=== PATIENT | male | born 1985 | race Caucasian/White ===

== ENCOUNTER 2018-10-27 14:50 | Observation (INO) | payer OTHER ==
[~2018-10-27 14:50] MED LIST: DEXAMETHASONE SOD PHOS (MDV) 100 MG/10 ML VIAL ONE; GLYCOPYRROLATE 0.2 MG/ML 2 ML VIAL ONE; KETOROLAC 30 MG/ML 1 ML VIAL ONE; LIDOCAINE 1% INJ 10MG/ML (20 ML MDV) ONE; MIDAZOLAM 2 MG/2 ML VIAL ONE; NEOSTIGMINE 1 MG/ML 10 ML VIAL ONE; ONDANSETRON 4 MG/2 ML VIAL ONE; PROPOFOL 10 MG/ML 20 ML VIAL IV ONE; ROCURONIUM BROMIDE 10 MG/ML 10 ML VIAL IV ONE; ePHEDrine SULFATE/0.9% NACL/PF 50 MG/5 ML SYRINGE IV ONE; fentaNYL (PF) 50 MCG/ML 2 ML AMP ONE
--- NOTE | 2018-10-27 15:24 | ED ---
General Adult HPI - General Chief complaint: Abdominal Pain Stated complaint: Lower abd pain Time Seen by Provider: 10/27/18 15:15 Source: patient Mode of arrival: ambulatory Limitations: no limitations - Related Data Home Medications Medication Instructions Recorded Confirmed Ascorbic Acid [Vitamin C] 500 mg PO DAILY 10/27/18 10/27/18 Multivitamins, Thera [Multivitamin 1 tab PO DAILY 10/27/18 10/27/18 (formulary)] Allergies Allergy/AdvReac Type Severity Reaction Status Date / Time latex AdvReac Rash/Hives Verified 10/27/18 16:11 Review of Systems ROS Statement: Those systems with pertinent positive or pertinent negative responses have been documented in the HPI. ROS Other: All systems not noted in ROS Statement are negative. Past Medical History Past Medical History: No Reported History History of Any Multi-Drug Resistant Organisms: None Reported Past Surgical History: Orthopedic Surgery Past Psychological History: No Psychological Hx Reported Smoking Status: Never smoker Past Alcohol Use History: Occasional Past Drug Use History: None Reported General Exam Limitations: no limitations Course Vital Signs 10/27/18 15:05 Temperature 98.9 F Pulse Rate 125 H Respiratory 18 Rate Blood Pressure 146/76 O2 Sat by Pulse 99 Oximetry Medical Decision Making - Medical Decision Making Dictation was produced using [employer] dictation software. please excuse any grammatical, word or spelling errors. Chief Complaint: 33-year-old male with no significant past medical history presents with right lower quadrant pain. History of Present Illness: Patient states the symptoms began yesterday. He states that yesterday it was localized on his. No region. He states that today his pain changes in characteristic turn from the sharp and moving to his right lower quadrant. He states that pain is worse with palpation. Patient states that he has been nauseated and slightly diaphoretic. Patient denies any history of abdominal surgery. Patient complaining of constitutional symptoms. The ROS documented in this emergency department record has been reviewed and confirmed by me. Those systems with pertinent positive or negative responses have been documented in the HPI. All other systems are other negative and/or noncontributory. PHYSICAL EXAM: General Impression: Alert and oriented x3, not in acute distress HEENT: Normocephalic atraumatic, extra-ocular movements intact, pupils equal and reactive to light bilaterally, mucous membranes moist. Cardiovascular: Heart regular rate and rhythm, S1&S2 audible, no murmurs, rubs or gallops Chest: Lungs clear to auscultation bilaterally, no rhonchi, no wheeze, no rales Abdomen: Bowel sounds present, abdomen soft, tenderness to the right lower quadrant. No rebound tenderness Musculoskeletal: Pulses present and equal in all extremities, no peripheral edema Motor: Power 5/5 bilaterally, no focal deficits noted Neurological: CN II-XII grossly intact, no focal motor or sensory deficits noted Skin: Intact with no visualized rashes Psych: Normal affect and mood ED course: 33-year-old male chief complaint of abdominal pain. As upon arrival shows heart rate 125, rest of vital signs within acceptable limits. There is clinical suspicion of appendicitis. CT abdomen and pelvis with contrast shows findings of acute appendicitis. Pending labs. Discussed patient case Dr. Moreau who is willing to accept the admission. Patient started on ceftriaxone and Flagyl. Patient offered medications for analgesia however he refused.Laboratory evaluation obtained. Leukocytosis of 18.7. Rest of labs unremarkable. Metabolic panel is unremarkable. Urinalysis negative. - Lab Data Result diagrams: 10/27/18 15:25 10/27/18 15:25 Lab Results 10/27/18 10/27/18 10/27/18 Range/Units 15:25 15:25 15:25 WBC 18.7 H (3.8-10.6) k/uL RBC 5.40 (4.30-5.90) m/uL Hgb 16.4 (13.0-17.5) gm/dL Hct 49.0 (39.0-53.0) % MCV 90.8 (80.0-100.0) fL MCH 30.5 (25.0-35.0) pg MCHC 33.5 (31.0-37.0) g/dL RDW 12.4 (11.5-15.5) % Plt Count 264 (150-450) k/uL Neutrophils % 89 % Lymphocytes % 6 % Monocytes % 4 % Eosinophils % 1 % Basophils % 0 % Neutrophils # 16.6 H (1.3-7.7) k/uL Lymphocytes # 1.2 (1.0-4.8) k/uL Monocytes # 0.7 (0-1.0) k/uL Eosinophils # 0.1 (0-0.7) k/uL Basophils # 0.0 (0-0.2) k/uL Sodium 141 (137-145) mmol/L Potassium 3.8 (3.5-5.1) mmol/L Chloride 103 (98-107) mmol/L Carbon Dioxide 26 (22-30) mmol/L Anion Gap 12 mmol/L BUN 8 L (9-20) mg/dL Creatinine 0.64 L (0.66-1.25) mg/dL Est GFR (CKD-EPI)AfAm >90 (>60 ml/min/1.73 sqM) Est GFR (CKD-EPI)NonAf >90 (>60 ml/min/1.73 sqM) Glucose 115 H (74-99) mg/dL Calcium 10.8 H (8.4-10.2) mg/dL Total Bilirubin 0.6 (0.2-1.3) mg/dL AST 24 (17-59) U/L ALT 42 (21-72) U/L Alkaline Phosphatase 101 (38-126) U/L Total Protein 8.3 H (6.3-8.2) g/dL Albumin 4.9 (3.5-5.0) g/dL Lipase 96 (23-300) U/L Urine Color Light Yellow Urine Appearance Clear (Clear) Urine pH 5.5 (5.0-8.0) Ur Specific [place] 1.004 (1.001-1.035) Urine Protein Negative (Negative) Urine Glucose (UA) Negative (Negative) Urine Blood Negative (Negative) Urine Nitrite Negative (Negative) Urine Bilirubin Negative (Negative) Urine Urobilinogen <2.0 (<2.0) mg/dL Ur Leukocyte Esterase Negative (Negative) Disposition Clinical Impression: Acute appendicitis Disposition: ADMITTED IP TO THIS [facility] Condition: Fair Referrals: None,Stated [Primary Care Provider] - 1-2 days Decision Time: 16:21
[2018-10-27] MEDS ORDERED: metroNIDAZOLE-NS PMX 500 MG in SALINE 1 100ML.BAG IVPB STA (16:03)
--- NOTE | 2018-10-27 16:05 | CT ---
EXAMINATION TYPE: CT abdomen pelvis w con DATE OF EXAM: 10/27/2018 COMPARISON: None INDICATION: RLQ pain with nausea DLP: 1602.1 mGycm, Automated exposure control for dose reduction was used. CONTRAST: 100 mL of Isovue 300. Study performed without Oral Contrast TECHNIQUE: Axial images were obtained from above the diaphragm to the pubic rami in the axial plane a t 5 mm thick sections. Reconstructed images are reviewed on the computer in the coronal plane. FINDINGS: Limited CT sections are obtained the lung bases. The lung bases are clear. CT ABDOMEN: There is a periumbilical hernia containing mesenteric fat. The opening is 1.4 cm. Liver: Normal Spleen: Normal. Splenule is adjacent to the medial spleen. Pancreas: Normal Adrenal glands: The adrenal glands are normal. Gallbladder: Normal Kidneys: No masses are evident. No hydronephrosis is present. Small cortical renal cysts in the pos terior lateral right mid kidney. A nonobstructing punctate renal stone at the inferior pole right ki dney may be present. Aorta: Normal Inferior vena cava: Normal. CT PELVIS: Loops of bowel within the abdomen and pelvis are normal. Small amount of contrast is in the regio n of the distal ileum and cecum. Appendix: The appendix appears dilated. A appendicolith measuring 1.0 cm near the cecal junction. Min imal inflammatory changes adjacent. The proximal appendix is dilated to 2.1 cm. Findings can be helen tible with acute appendicitis in the proper clinical setting. Urinary bladder: Normal. Genitourinary structures: Osseous structures: No suspicious lytic or sclerotic lesions. IMPRESSIONS: 1. Findings compatible with early acute appendicitis. Report was called to emergency room by Dr. Jaqueline winter.
[2018-10-27 16:07] LABS: Basophils % (A) 0 %; Eosinophils # (A) 0.1 k/uL (0-0.7); Eosinophils % (A) 1 %; HGB 16.4 gm/dL (13.0-17.5); Lymphocytes # (A) 1.2 k/uL (1.0-4.8); Lymphocytes % (A) 6 %; MCH 30.5 pg (25.0-35.0); MCHC 33.5 g/dL (31.0-37.0); MCV 90.8 fL (80.0-100.0); Mean Platelet Volume 7.1; Monocytes # (A) 0.7 k/uL (0-1.0); Monocytes % (A) 4 %; Neutrophils # (A) 16.6 k/uL (1.3-7.7); Neutrophils % (A) 89 %; Platelet Count 264 k/uL (150-450); RDW 12.4 % (11.5-15.5); WBC 18.7 k/uL (3.8-10.6)
[2018-10-27 16:09] LABS: Appearance,Urine Clear (Clear); Bilirubin,Urine Negative (Negative); Blood,Urine Negative (Negative); Color,Urine Light Yellow; Glucose,Urine (UA) Negative (Negative); Ketones,Urine 2+ (Negative); Leukocyte Esterase,Urine Negative (Negative); Nitrite,Urine Negative (Negative); PH, Urine 5.5 (5.0-8.0); Protein,Urine Negative (Negative); Specific Gravity,Urine 1.004 (1.001-1.035); Urobilinogen,Urine <2.0 mg/dL (<2.0)
[2018-10-27 16:18] LABS: ALT 42 U/L (21-72); AST 24 U/L (17-59); Albumin 4.9 g/dL (3.5-5.0); Alkaline Phosphatase 101 U/L (38-126); Anion Gap 12 mmol/L; Blood Urea Nitrogen 8 mg/dL (9-20); Calcium 10.8 mg/dL (8.4-10.2); Carbon Dioxide 26 mmol/L (22-30); Chloride 103 mmol/L (98-107); Glucose 115 mg/dL (74-99); Lipase 96 U/L (23-300); Potassium 3.8 mmol/L (3.5-5.1); Sodium 141 mmol/L (137-145); Total Bilirubin 0.6 mg/dL (0.2-1.3); Total Protein 8.3 g/dL (6.3-8.2)
[2018-10-27] MEDS: MORPHINE SULFATE 4 MG/ML SYRINGE IVP PRN ×2 (16:46→20:43)
[2018-10-27] MEDS ORDERED: ACETAMINOPHEN TAB 325 MG TAB PO PRN (16:57)
[2018-10-27] MEDS ORDERED: MORPHINE SULFATE 4 MG/ML SYRINGE IV PRN (16:57)
[2018-10-27] MEDS ORDERED: NALOXONE 0.4 MG/ML 1 ML VIAL IV PRN (16:57)
[2018-10-27] MEDS ORDERED: ONDANSETRON 4 MG/2 ML VIAL IVP PRN (16:57)
[2018-10-27] MEDS ORDERED: SODIUM CHLORIDE 0.9% 1,000 ML IV ONE (16:59)
[2018-10-27 17:47] VITALS: BMI 33.9
[2018-10-27] MEDS: SODIUM CHLORIDE 0.9% 1,000 ML IV SCH (18:12)
[2018-10-28] MEDS: MORPHINE SULFATE 4 MG/ML SYRINGE IVP PRN ×2 (00:41→04:30)
[2018-10-28] MEDS: metroNIDAZOLE-NS PMX 500 MG in SALINE 1 100ML.BAG IVPB SCH ×3 (00:41→21:27)
[2018-10-28] MEDS: SODIUM CHLORIDE 0.9% 1,000 ML IV SCH (04:30)
[2018-10-28] MEDS ORDERED: SODIUM CHLORIDE 0.9% 1,000 ML IV ONE ×2 (07:52→10:19)
--- NOTE | 2018-10-28 08:19 | P.GSHP ---
History of Present Illness H&P Date: 10/28/18 Chief Complaint: Right lower quadrant pain This a 33-year-old male who has a 24-hour history of right lower quadrant pain. Patient presented to the emergency room. He underwent computed tomography scan the abdomen. He is found have evidence of early appendicitis. He's been admitted to the hospital for laparoscopic appendectomy. Past Medical History Past Medical History: No Reported History History of Any Multi-Drug Resistant Organisms: None Reported Past Surgical History: Orthopedic Surgery Past Psychological History: No Psychological Hx Reported Smoking Status: Never smoker Past Alcohol Use History: Occasional Past Drug Use History: None Reported Medications and Allergies Home Medications Medication Instructions Recorded Confirmed Type Ascorbic Acid [Vitamin C] 500 mg PO DAILY 10/27/18 10/27/18 History Multivitamins, Thera [Multivitamin 1 tab PO DAILY 10/27/18 10/27/18 History (formulary)] Allergies Allergy/AdvReac Type Severity Reaction Status Date / Time latex AdvReac Rash/Hives Verified 10/27/18 16:11 Surgical - Exam Vital Signs Temp Pulse Resp BP Pulse Ox 98.9 F 125 H 18 146/76 99 10/27/18 15:05 10/27/18 15:05 10/27/18 15:05 10/27/18 15:05 10/27/18 15:05 - General well developed, well nourished, no distress - Eyes PERRL - ENT normal pinna - Neck no masses - Respiratory normal expansion - Cardiovascular Rhythm: regular - Abdomen Mild right lower quadrant pain Abdomen: soft Results - Labs 10/27/18 15:25 10/27/18 15:25 Abnormal Lab Results - Last 24 Hours (Table) 10/27/18 10/27/18 10/27/18 Range/Units 15:25 15:25 15:25 WBC 18.7 H (3.8-10.6) k/uL Neutrophils # 16.6 H (1.3-7.7) k/uL BUN 8 L (9-20) mg/dL Creatinine 0.64 L (0.66-1.25) mg/dL Glucose 115 H (74-99) mg/dL Calcium 10.8 H (8.4-10.2) mg/dL Total Protein 8.3 H (6.3-8.2) g/dL Urine Ketones 2+ H (Negative) Diabetes panel 10/27/18 Range/Units 15:25 Sodium 141 (137-145) mmol/L Potassium 3.8 (3.5-5.1) mmol/L Chloride 103 (98-107) mmol/L Carbon Dioxide 26 (22-30) mmol/L BUN 8 L (9-20) mg/dL Creatinine 0.64 L (0.66-1.25) mg/dL Glucose 115 H (74-99) mg/dL Calcium 10.8 H (8.4-10.2) mg/dL AST 24 (17-59) U/L ALT 42 (21-72) U/L Alkaline Phosphatase 101 (38-126) U/L Total Protein 8.3 H (6.3-8.2) g/dL Albumin 4.9 (3.5-5.0) g/dL Calcium panel 10/27/18 Range/Units 15:25 Calcium 10.8 H (8.4-10.2) mg/dL Albumin 4.9 (3.5-5.0) g/dL Pituitary panel 10/27/18 Range/Units 15:25 Sodium 141 (137-145) mmol/L Potassium 3.8 (3.5-5.1) mmol/L Chloride 103 (98-107) mmol/L Carbon Dioxide 26 (22-30) mmol/L BUN 8 L (9-20) mg/dL Creatinine 0.64 L (0.66-1.25) mg/dL Glucose 115 H (74-99) mg/dL Calcium 10.8 H (8.4-10.2) mg/dL Adrenal panel 10/27/18 Range/Units 15:25 Sodium 141 (137-145) mmol/L Potassium 3.8 (3.5-5.1) mmol/L Chloride 103 (98-107) mmol/L Carbon Dioxide 26 (22-30) mmol/L BUN 8 L (9-20) mg/dL Creatinine 0.64 L (0.66-1.25) mg/dL Glucose 115 H (74-99) mg/dL Calcium 10.8 H (8.4-10.2) mg/dL Total Bilirubin 0.6 (0.2-1.3) mg/dL AST 24 (17-59) U/L ALT 42 (21-72) U/L Alkaline Phosphatase 101 (38-126) U/L Total Protein 8.3 H (6.3-8.2) g/dL Albumin 4.9 (3.5-5.0) g/dL Assessment and Plan Assessment: Right lower quadrant Leukocytosis Acute appendicitis. Patient will undergo laparoscopic appendectomy
[2018-10-28] MEDS ORDERED: SODIUM CHLORIDE 0.9% 50 ML with ceFAZolin 2,000 MG IV ONE ×2 (09:07)
[2018-10-28] MEDS ORDERED: BUPIVACAIN-EPI 0.25%-1:200,000 30 ML VIAL SQ ONE (09:09)
[2018-10-28] MEDS ORDERED: LACTATED RINGERS 1,000 ML IV ONE ×2 (09:27→09:30)
[2018-10-28] MEDS ORDERED: NALOXONE 0.4 MG/ML 1 ML VIAL IV PRN (09:30)
[2018-10-28] MEDS ORDERED: HYDROmorphone 0.5 MG/0.5 ML SYRINGE IVP PRN (09:30)
--- NOTE | 2018-10-28 09:30 | P.OP ---
Date of Procedure: 10/28/18 Preoperative Diagnosis: Appendicitis Postoperative Diagnosis: Acute appendicitis with microperforation Procedure(s) Performed: Laparoscopic appendectomy Anesthesia: ELISHA Surgeon: Christiano Moreau Estimated Blood Loss (ml): 5 Pathology: other (Appendix) Condition: stable Disposition: PACU Description of Procedure: The patient's placed on the operating table in the supine position. The patient received general anesthesia. The abdomen was prepped and draped in the usual sterile fashion. The skin was anesthetized 1% local Xylocaine at the trocar sites. Using an 11 blade the skin was incised above the umbilicus. There was evidence of an umbilical hernia with incarcerated omentum. The umbilicus was grasped with a [place] clamp and then a Veress needle was placed into the peritoneal cavity. Position of the Veress needle was confirmed with positive drop test. After adequate insufflation a 5 mm trocar was placed into the peritoneal cavity. The abdomen was further insufflated. And then the laparoscope was placed in the peritoneal cavity. Next a 5 mm trocar was placed in the midline suprapubic position. And then a 10 mm trocar was placed in the midline epigastric position. The patient was rotated with the right side up and in Trendelenburg. The appendix was visualized. The appendix appeared to be inflamed. There was evidence of microperforation. The appendix was grasped and then using the Harmonic scissors the mesoappendix was divided. A PDS Endoloop was then placed around the base of the appendix. And then the appendix was divided using Harmonic scissors. The appendix was placed into an Endo Catch and brought out through the 10 mm trocar site. The abdomen was irrigated. There is no bleeding seen. The trochars withdrawn. The skin was closed interrupted 3-0 Monocryl suture. Dermabond dressing was applied. Patient was sent to recovery room in stable condition.
[2018-10-28] MEDS ORDERED: HYDROmorphone 1 MG/ML 1 ML SYRINGE IVP ONE ×2 (10:18→10:26)
[2018-10-28] MEDS: KETOROLAC 30 MG/ML 1 ML VIAL IVP SCH (21:27)
[2018-10-29] MEDS: SODIUM CHLORIDE 0.9% 1,000 ML IV SCH ×4 (01:21→21:30)
[2018-10-29] MEDS: KETOROLAC 30 MG/ML 1 ML VIAL IVP SCH ×6 (01:21→21:30)
[2018-10-29] MEDS: metroNIDAZOLE-NS PMX 500 MG in SALINE 1 100ML.BAG IVPB SCH ×5 (01:22→21:30)
[2018-10-29 08:26] LABS: Basophils % (A) 0 %; Eosinophils % (A) 0 %; Lymphocytes # (A) 2.2 k/uL (1.0-4.8); Lymphocytes % (A) 17 %; MCH 30.4 pg (25.0-35.0); MCHC 32.6 g/dL (31.0-37.0); MCV 93.2 fL (80.0-100.0); Mean Platelet Volume 7.3; Monocytes # (A) 0.7 k/uL (0-1.0); Monocytes % (A) 6 %; Neutrophils # (A) 10.1 k/uL (1.3-7.7); Neutrophils % (A) 76 %; Platelet Count 207 k/uL (150-450); RBC 4.18 m/uL (4.30-5.90); RDW 12.4 % (11.5-15.5); WBC 13.3 k/uL (3.8-10.6)
[2018-10-29 08:44] LABS: HGB 12.7 gm/dL (13.0-17.5)
[2018-10-29] MEDS ORDERED: ENOXAPARIN 40 MG/0.4 ML SYRINGE SQ SCH (09:00)
--- NOTE | 2018-10-29 10:07 | P.CONS ---
History of Present Illness - Reason for Consult Consult date: 10/28/18 Perioperative complication management, tachycardia - History of Present Illness 33-year-old pleasant gentleman came in with the right lower quadrant abdominal pain severe found to have a appendicitis successfully underwent surgery emergently. Patient is presently on ceftriaxone and metronidazole which will be continued. Patient was bit tachycardic which is expected to improve with IV fluids and not unexpected of considering his body mass index and the post surgery. Patient pain is better controlled denied any fever chills nausea vomiting presently patient had nausea when he came in Review of Systems REVIEW OF SYSTEMS: CONSTITUTIONAL: No fever, no malaise, no fatigue. HEENT: No recent visual problems or hearing problems. Denied any sore throat. CARDIOVASCULAR: No chest pain, orthopnea, PND, no palpitations, no syncope. PULMONARY: No shortness of breath, no cough, no hemoptysis. GASTROINTESTINAL: As mentioned in HPI NEUROLOGICAL: No headaches, no weakness, no numbness. HEMATOLOGICAL: Denies any bleeding or petechiae. GENITOURINARY: Denies any burning micturition, frequency, or urgency. MUSCULOSKELETAL/RHEUMATOLOGICAL: Denies any joint pain, swelling, or any muscle pain. ENDOCRINE: Denies any polyuria or polydipsia. The rest of the 14-point review of systems is negative. Past Medical History Past Medical History: No Reported History History of Any Multi-Drug Resistant Organisms: None Reported Past Surgical History: Orthopedic Surgery Past Psychological History: No Psychological Hx Reported Smoking Status: Never smoker Past Alcohol Use History: Occasional Past Drug Use History: None Reported Medications and Allergies Home Medications Medication Instructions Recorded Confirmed Type Ascorbic Acid [Vitamin C] 500 mg PO DAILY 10/27/18 10/27/18 History Multivitamins, Thera [Multivitamin 1 tab PO DAILY 10/27/18 10/27/18 History (formulary)] Allergies Allergy/AdvReac Type Severity Reaction Status Date / Time latex AdvReac Rash/Hives Verified 10/27/18 16:11 Physical Exam Vitals: Vital Signs Temp Pulse Resp BP Pulse Ox 10/29/18 07:18 97.9 F 85 14 119/79 96 10/29/18 00:31 98.4 F 99 16 143/65 93 L 10/28/18 20:58 98.5 F 105 H 16 146/62 96 10/28/18 10:24 109 H 18 122/56 97 10/28/18 10:09 113 H 16 161/81 96 Intake and Output 10/28/18 10/29/18 10/29/18 22:59 06:59 14:59 Other: Voiding Method Toilet # Voids 2 1 PHYSICAL EXAMINATION: GENERAL: The patient is alert and oriented x3, not in any acute distress. Well developed, well nourished. HEENT: Pupils are round and equally reacting to light. EOMI. No scleral icterus. No conjunctival pallor. Normocephalic, atraumatic. No pharyngeal erythema. No thyromegaly. CARDIOVASCULAR: S1 and S2 present. No murmurs, rubs, or gallops. PULMONARY: Chest is clear to auscultation, no wheezing or crackles. ABDOMEN: Soft, sluggish bowel sounds surgical site area is clean. MUSCULOSKELETAL: No joint swelling or deformity. EXTREMITIES: No cyanosis, clubbing, or pedal edema. NEUROLOGICAL: Gross neurological examination did not reveal any focal deficits. SKIN: No rashes. Results CBC & Chem 7: 10/29/18 07:20 10/27/18 15:25 Labs: Abnormal Lab Results - Last 24 Hours (Table) 10/29/18 Range/Units 07:20 WBC 13.3 H (3.8-10.6) k/uL RBC 4.18 L (4.30-5.90) m/uL Hgb 12.7 L D (13.0-17.5) gm/dL Neutrophils # 10.1 H (1.3-7.7) k/uL Assessment and Plan Plan: -acute appendicitis: Patient is status post appendectomy will continue with IV fluids and the above-mentioned antibiotics pain management as per primary service DVT prophylaxis per primary service -Tachycardia secondary to surgery and acute appendicitis continue with IV fluids and monitor -Obesity
--- NOTE | 2018-10-29 15:02 | P.PN ---
Progress Note - Text Progress Note Date: 10/29/18 The patient is resting comfortably in his chair. He's had some complaints of pain. He's had some limited oral intake. On exam is lesser stable. His evidence soft. Status post laparoscopic appendectomy for acute appendicitis with microperforation. Patient will continue receive IV antibiotic. Weight is be discharged home in a.m.
[2018-10-29] MEDS: HYDROcodone/APAP 5-325MG 1 EACH TAB PO PRN (16:46)
--- NOTE | 2018-10-29 17:43 | P.PN ---
Subjective No overnight events patient moved his bowel. Constitutional: Denied any fatigue denied any fever. Cardio vascular: denied any chest pain, palpitations Gastrointestinal denied any nausea vomiting Pulmonary: Denied any shortness of breath cough Neurologic denied any new focal deficits All inpatient medications were reviewed and appropriate changes in these medications as dictated in the interval history and assessment and plan. Objective - Vital Signs Vital signs: Vital Signs Temp 98.0 F 10/29/18 14:37 Pulse 92 10/29/18 14:37 Resp 14 10/29/18 07:18 BP 143/80 10/29/18 14:37 Pulse Ox 98 10/29/18 14:37 Intake & Output 10/28/18 10/29/18 10/29/18 18:59 06:59 18:59 Intake Total 2000 550 Output Total 205 Balance 1795 550 Intake: IV 2000 Intake, IV Titration 550 Amount Sodium Chloride 0.9% 50 400 ml @ 0 mls/hr IV .STK-MED ONE with ceFAZolin 2,000 mg Rx#:[id number] cefTRIAXone 1,000 mg In 50 Sodium Chloride 0.9% 50 ml @ 100 mls/hr IVPB Q24H [facility] Rx#:[id number] metroNIDAZOLE-NS PMX 500 100 mg In Saline 1 100ml.bag @ 100 mls/hr IVPB Q6HR [facility] Rx#:[id number] Output: Urine 200 Estimated Blood Loss 5 Other: Voiding Method Toilet # Voids 2 1 - Exam PHYSICAL EXAMINATION: GENERAL: The patient is alert and oriented x3, not in any acute distress. Well developed, well nourished. HEENT: Pupils are round and equally reacting to light. EOMI. No scleral icterus. No conjunctival pallor. Normocephalic, atraumatic. No pharyngeal erythema. No thyromegaly. CARDIOVASCULAR: S1 and S2 present. No murmurs, rubs, or gallops. PULMONARY: Chest is clear to auscultation, no wheezing or crackles. ABDOMEN: Soft, patient does have good bowel sounds surgical site area is clean. MUSCULOSKELETAL: No joint swelling or deformity. EXTREMITIES: No cyanosis, clubbing, or pedal edema. NEUROLOGICAL: Gross neurological examination did not reveal any focal deficits. SKIN: No rashes. - Labs CBC & Chem 7: 10/29/18 07:20 10/27/18 15:25 Labs: Abnormal Lab Results - Last 24 Hours (Table) 10/29/18 Range/Units 07:20 WBC 13.3 H (3.8-10.6) k/uL RBC 4.18 L (4.30-5.90) m/uL Hgb 12.7 L D (13.0-17.5) gm/dL Neutrophils # 10.1 H (1.3-7.7) k/uL Assessment and Plan Plan: -acute appendicitis: Patient is status post appendectomy will continue with IV fluids and the above-mentioned antibiotics pain management as per primary service DVT prophylaxis per primary service -Tachycardia secondary to surgery and acute appendicitis improved with IV fluids -leukocytosis secondary to appendicitis and surgery -Obesity
[2018-10-30] MEDS: HYDROcodone/APAP 5-325MG 1 EACH TAB PO PRN (02:53)
[2018-10-30] MEDS: metroNIDAZOLE-NS PMX 500 MG in SALINE 1 100ML.BAG IVPB SCH ×2 (02:53→05:39)
[2018-10-30] MEDS: SODIUM CHLORIDE 0.9% 1,000 ML IV SCH (04:22)
[2018-10-30] MEDS: KETOROLAC 30 MG/ML 1 ML VIAL IVP SCH (04:22)
[2018-10-30 10:09] VITALS: BP 153/89; PULSE 63; RESP 16; TEMP 98
--- NOTE | 2018-10-30 10:46 | P.DS ---
Providers Date of admission: 10/27/18 16:57 Expected date of discharge: 10/30/18 Attending physician: Christiano Moreau Consults: 10/28/18 09:30 Consult Physician Routine Consulting Provider: Ruchi White Consult Reason/Comments: Medical management Do you want consulting provider notified?: Yes Primary care physician: Stated None Hospital Course: 33-year-old male presented to emergency room with abdominal pain. The patient was found to have appendicitis. He underwent laparoscopic appendectomy. The patient has done well postoperatively without palpitations. He has been ambulating. His pain has been well-controlled. He is tolerating oral intake and has had a bowel movement. He is stable for discharge home today. He is to follow-up in one week. See EMR for further hospital details. DISCHARGE DIAGNOSIS: 1. Abdominal pain 2. Acute appendicitis, status post laparoscopic appendectomy Nurse practitioner note has been reviewed by physician. Signing provider agrees with the documented findings, assessment, and plan of care. Patient Condition at Discharge: Stable Plan - Discharge Summary Discharge Rx Participant: Yes New Discharge Prescriptions: New Docusate [Colace] 100 mg PO BID #30 capsule HYDROcodone/APAP 5-325MG [[place] 5-325] 2 each PO Q6HR PRN #24 tab PRN Reason: Moderate To Severe Pain Levofloxacin [Levaquin] 750 mg PO DAILY #7 tab Continue Multivitamins, Thera [Multivitamin (formulary)] 1 tab PO DAILY Ascorbic Acid [Vitamin C] 500 mg PO DAILY Discharge Medication List Ascorbic Acid [Vitamin C] 500 mg PO DAILY 10/27/18 [History] Multivitamins, Thera [Multivitamin (formulary)] 1 tab PO DAILY 10/27/18 [History ] Docusate [Colace] 100 mg PO BID #30 capsule 10/30/18 [Rx] HYDROcodone/APAP 5-325MG [[place] 5-325] 2 each PO Q6HR PRN #24 tab 10/30/18 [Rx] Levofloxacin [Levaquin] 750 mg PO DAILY #7 tab 10/30/18 [Rx] Follow up Appointment(s)/Referral(s): None,Stated [Primary Care Provider] - 1-2 days Christiano Moreau MD [STAFF PHYSICIAN] - 1 Week Patient Instructions/Handouts: Laparoscopic Appendectomy (DC) Activity/Diet/Wound Care/Special Instructions: No driving while taking [place] No lifting over 10 pounds You may shower. No soaking or tub baths Very light activity until you are reevaluated at your follow up appointment with your surgeon Discharge Disposition: HOME SELF-CARE
== END 2018-10-30 11:00 | disposition home or self-care (01) ==
LOC: EC 14:50 → INTOOBSV 16:57 → 4SSUR 16:57
PROVIDERS: ADMIT Surgery; ATTEND Surgery
DX: K35.80 Unspecified acute appendicitis (principal); Z91.040 Latex allergy status; E66.9 Obesity, unspecified; Z68.33 Body mass index [BMI] 33.0-33.9, adult
CPT/HCPCS: 36415; 88304; 80053; 83690; 85025 ×2; 81003; 74177; 44970; G0378 ×4; J2250; J2270 ×2; J2710; J2405; J2001; J1650; J0696 ×2; J3010; J1885 ×4; J1170; J0690; J1100; J2704; Q9967

== ENCOUNTER 2018-12-05 07:39 | Day surgery (SDC) | payer OTHER ==
[~2018-12-05 07:39] MED LIST changes: -DEXAMETHASONE SOD PHOS (MDV) 100 MG/10 ML VIAL ONE; -GLYCOPYRROLATE 0.2 MG/ML 2 ML VIAL ONE; +HEPARIN SODIUM,PORCINE 5,000 UNIT/ML 1 ML VIAL SQ ONE; -KETOROLAC 30 MG/ML 1 ML VIAL ONE; -LIDOCAINE 1% INJ 10MG/ML (20 ML MDV) ONE; -MIDAZOLAM 2 MG/2 ML VIAL ONE; -NEOSTIGMINE 1 MG/ML 10 ML VIAL ONE; -ONDANSETRON 4 MG/2 ML VIAL ONE; -PROPOFOL 10 MG/ML 20 ML VIAL IV ONE; -ROCURONIUM BROMIDE 10 MG/ML 10 ML VIAL IV ONE; +ceFAZolin IN SWFI 2 GM/20 ML SYRINGE IVP ONE; -ePHEDrine SULFATE/0.9% NACL/PF 50 MG/5 ML SYRINGE IV ONE; -fentaNYL (PF) 50 MCG/ML 2 ML AMP ONE
[2018-12-05] MEDS ORDERED: ONDANSETRON 4 MG/2 ML VIAL IVP ONE (08:14)
[2018-12-05] MEDS ORDERED: LIDOCAINE 1% 20 ML VIAL (10MG/ML) FOR IV START INTRADERMA PRN (08:14)
[2018-12-05] MEDS ORDERED: DEXAMETHASONE SOD PHOSPHATE 10 MG/ML 1 ML VIAL IV ONE (08:14)
[2018-12-05] MEDS ORDERED: LACTATED RINGERS 1,000 ML IV SCH (08:14)
[2018-12-05] MEDS ORDERED: MIDAZOLAM (PF) 2 MG/2 ML VIAL IV PRN (08:14)
[2018-12-05] MEDS ORDERED: SCOPOLAMINE 1.5MG/72HR PATCH TRANSDERM ONE (08:14)
[2018-12-05 08:19] VITALS: BMI 36.1
[2018-12-05 08:24] VITALS: RESP 16
--- NOTE | 2018-12-05 09:13 | P.GSHP ---
History of Present Illness H&P Date: 12/05/18 Chief Complaint: Umbilical hernia incarcerated This is a 33-year-old male who presents today for laparoscopic robotic-assisted repair of incarcerated umbilical hernia. Patient's had complaints of a tender mass in his umbilicus. Past Medical History Past Medical History: No Reported History History of Any Multi-Drug Resistant Organisms: None Reported Past Surgical History: Orthopedic Surgery Past Psychological History: No Psychological Hx Reported Smoking Status: Never smoker Past Alcohol Use History: Occasional Past Drug Use History: None Reported Medications and Allergies Home Medications Medication Instructions Recorded Confirmed Type Ascorbic Acid [Vitamin C] 500 mg PO DAILY 10/27/18 12/05/18 History Multivitamins, Thera [Multivitamin 1 tab PO DAILY 10/27/18 12/05/18 History (formulary)] Docusate [Colace] 100 mg PO BID #30 capsule 10/30/18 12/05/18 Rx Allergies Allergy/AdvReac Type Severity Reaction Status Date / Time latex AdvReac Rash/Hives Verified 10/27/18 16:11 Surgical - Exam Vital Signs Temp Pulse Resp BP Pulse Ox 98.7 F 74 16 138/74 98 12/05/18 08:21 12/05/18 08:21 12/05/18 08:21 12/05/18 08:21 12/05/18 08:21 - General well developed, well nourished, no distress - Eyes PERRL - ENT normal pinna - Neck no masses - Respiratory normal expansion - Cardiovascular Rhythm: regular - Abdomen Abdomen: soft, non tender Assessment and Plan Assessment: Incarcerated umbilical hernia. We'll perform laparoscopic robotic assistance repair.
[2018-12-05] MEDS ORDERED: SUCCINYLCHOLINE CHLORIDE 100 MG/5 ML SYR IV ONE (09:41)
[2018-12-05] MEDS ORDERED: MIDAZOLAM 2 MG/2 ML VIAL ONE (09:41)
[2018-12-05] MEDS ORDERED: LIDOCAINE 1% INJ 10MG/ML (20 ML MDV) ONE (09:41)
[2018-12-05] MEDS ORDERED: GLYCOPYRROLATE 0.2 MG/ML 2 ML VIAL ONE (09:41)
[2018-12-05] MEDS ORDERED: PROPOFOL 10 MG/ML 20 ML VIAL IV ONE (09:41)
[2018-12-05] MEDS ORDERED: ROCURONIUM BROMIDE 10 MG/ML 10 ML VIAL IV ONE (09:41)
[2018-12-05] MEDS ORDERED: KETOROLAC 30 MG/ML 1 ML VIAL ONE (09:41)
[2018-12-05] MEDS ORDERED: NEOSTIGMINE 1 MG/ML 10 ML VIAL ONE (09:41)
[2018-12-05] MEDS ORDERED: fentaNYL (PF) 50 MCG/ML 2 ML AMP ONE (09:41)
[2018-12-05] MEDS ORDERED: LIDOCAINE 2%-EPI 1:100,000 20 ML VIAL ONE (09:41)
[2018-12-05] MEDS ORDERED: ROPIVACAINE 5 MG/ML 30 ML VIAL ONE (09:41)
[2018-12-05] MEDS ORDERED: SODIUM CHLORIDE 0.9% 50 ML with ceFAZolin 2,000 MG IV ONE ×2 (10:05)
[2018-12-05] MEDS ORDERED: BUPIVACAINE-EPI 0.5%-1:200,000 10 ML VIAL SQ ONE (10:11)
[2018-12-05 10:56] VITALS: TEMP 97.4
--- NOTE | 2018-12-05 11:13 | P.OP ---
Date of Procedure: 12/05/18 Preoperative Diagnosis: Incarcerated umbilical hernia Postoperative Diagnosis: Incarcerated umbilical hernia Procedure(s) Performed: Laparoscopic robotic-assisted repair of incarcerated umbilical hernia Partial omentectomy Anesthesia: ELISHA Surgeon: Christiano Moreau Pathology: other (Omentum, hernia sac) Condition: stable Disposition: PACU Description of Procedure: The patient was placed on the operating table in the supine position. He received general anesthesia. His abdomen was prepped and draped usual fashion. Using a 5 mm optical trocar under direct visualization the peritoneal cavity was entered in the left upper quadrant. The abdomen was then insufflated. The laparoscope was placed back into the perineal cavity. Next a 8 mm robotic trocar was placed in the left lower quadrant and a 12 mm robotic trocar was placed in the left lateral position. The original 5 mm trocar was exchanged for a 8 mm robotic trocar. The patient's placed in the left side up position. And the patient was undocked the robot. The umbilical hernia was visualized. The incarcerated omentum was dissected free and then transected with the hook cautery. Using hook cautery the peritoneum over the umbilical hernia was excised. The hernia sac was excised. The fascial opening was repaired using 0V LOC suture. Next a piece of 11 cm round ventral light ST mesh was placed into the. Cavity and secured with 2 OV lock suture. The patient was undocked the robot. The needles were retrieved. The omentum and hernia sac were retrieved. The fascia of the 12 mm trocar site was closed with 0 Ethibond suture. Skin was closed interrupted 3-0 Monocryl suture. Dermabond dressings was applied. Patient top procedure well and was sent to recovery room stable condition.
[2018-12-05] MEDS: HYDROmorphone 0.5 MG/0.5 ML SYRINGE IVP PRN ×3 (11:28→11:43)
[2018-12-05] MEDS ORDERED: LACTATED RINGERS 1,000 ML IV ONE ×2 (11:30→13:14)
[2018-12-05] MEDS ORDERED: HYDROcodone/APAP 7.5-325MG 1 EACH TAB PO ONE (12:11)
[2018-12-05 13:30] VITALS: BP 141/78; PULSE 125
--- NOTE | 2018-12-06 12:31 | P.ONQ ---
Anesthesiology Proc Note - PNB - Peripheral Nerve Block Performed Bilateral Transversus Abdominis Single Time Out Performed: Yes Procedure Start Time: Procedure Stop Time: Indication: Acute Post-Operative Pain, Requested by physician Sedation Type: Sedate with meaningful contact maintained Preparation: Sterile Prep Position: Supine Needle Size: 50mm (2") Needle Gauge: 21 Technique: Ultrasound Injectate: 0.5% Ropivacaine (see comment for volume) (ropi .5% 15cc plus xylo 2 % 15cc each side) Blood Aspirated: No Pain Paresthesia on Injection Noted: No Resistance on Injection: Normal Events: Uneventful and Well Tolerated
== END 2018-12-05 14:03 | disposition home or self-care (01) ==
LOC: OR 07:39
PROVIDERS: ATTEND Surgery
DX: K42.0 Umbilical hernia with obstruction, without gangrene (principal); E66.9 Obesity, unspecified; Z68.33 Body mass index [BMI] 33.0-33.9, adult; Z79.899 Other long term (current) drug therapy; Z91.040 Latex allergy status
CPT/HCPCS: 49653; S2900; 64488; 88305; 93005